=== PATIENT | male | born 1990 | race American Indian/Alaskan Native ===

== ENCOUNTER 2018-11-04 21:34 | Observation (INO) | payer BC ==
[2018-11-04 22:03] VITALS: BMI 32.1
[2018-11-04] MEDS ORDERED: Sodium Chloride 0.9% 1,000 ML IV STA (22:41)
[2018-11-05 00:16] LABS: BASO # 0.01 K/mm3 (0.0-2.0); BASO % 0.2 % (0.0-3.0); EOS % 0.3 % (1.5-5.0); HEMOGLOBIN 14.5 g/dL (14.0-18.0); LYMPH # 0.8 (1.2-3.4); LYMPH % 12.6 % (22.0-35.0); MEAN CELL VOLUME 83.5 fl (80.0-105.0); MEAN CORPUSCULAR HEMOGLOBIN 27.5 pg (25.0-35.0); MEAN CORPUSCULAR HGB CONC 32.9 g/dl (31.0-37.0); MEAN PLATELET VOLUME 11.1 fl (7.0-11.0); MONO # 0.5 (0.1-0.6); MONO % 8.8 % (1.0-6.0); RBC 5.28 10^6/uL (3.5-6.1); RED CELL DISTRIBUTION WIDTH 14.8 % (11.5-14.5); WHITE BLOOD COUNT 6.1 10^3/uL (4.5-11.0)
[2018-11-05 00:17] LABS: URINE BILIRUBIN NEGATIVE (NEGATIVE); URINE BLOOD NEGATIVE (NEGATIVE); URINE GLUCOSE (UA) NEGATIVE (NEGATIVE); URINE LEUKOCYTE ESTERASE NEGATIVE Leu/uL (NEGATIVE); URINE PROTEIN TRACE mg/dL (<30 mg/dL); URINE UROBILINOGEN 0.2 E.U./dL (<1 E.U./dL)
[2018-11-05 00:20] LABS: URINE APPEARANCE CLEAR (CLEAR); URINE COLOR YELLOW (YELLOW)
[2018-11-05 00:24] LABS: ALB/GLOB RATIO 1.1 (1.1-1.8); ALBUMIN 4.1 g/dL (3.0-4.8); ALT/SGPT 27 U/L (7-56); AST/SGOT 27 U/L (17-59); BLOOD UREA NITROGEN 16 mg/dL (7-21); CALCIUM 8.7 mg/dL (8.4-10.5); GFR NON-AFRICAN AMERICAN > 60; LIPASE 107 U/L (23-300)
[2018-11-05] MEDS ORDERED: Iohexol 350 MG/100 ML VIAL ONE (00:32)
[2018-11-05 00:41] LABS: URINE EPITHELIAL CELLS 0 - 2 /hpf (0-5); URINE RBC 0 - 2 /hpf (0-2); URINE WBC 0 - 2 /hpf (0-6)
--- NOTE | 2018-11-05 01:12 | ED PDOC ---
Arrival/HPI - General Historian: Patient - History of Present Illness Narrative History of Present Illness (Text): 11/05/18 01:09 28yr old male presents today with abdominal pain, nausea, vomiting and diarrhea since yesterday. Patient denies chest pain or shortness of breath. Patient states symptoms started after eating yesterday. Patient is complaining of periumbilical pain. Patient denies back pain. Denies testicular pain. Patient states his been having chills but denies fevers. Denies urinary symptoms. No medications have been taken at home. No other complaints <Anjali Hus - Last Filed: 11/05/18 02:30> <Chance Galindo - Last Filed: 11/07/18 11:10> - General Chief Complaint: GI Problem Time Seen by Provider: 11/04/18 21:43 Past Medical History - Provider Review Nursing Documentation Reviewed: Yes - Travel History Have you recently traveled outside [place] w/in the past 3 mons?: No - Infectious Disease Hx of Infectious Diseases: None - Tetanus Immunization Tetanus Immunization: Unknown - Past Medical History Past Medical History: No Previous - Psychiatric Hx Psychophysiologic Disorder: No Hx Anxiety: No Hx Bipolar Disorder: No Hx Depression: No Hx Emotional Abuse: No Hx Hallucinations: No Hx Panic Disorder: No Hx Post Traumatic Stress Disorder: No Hx Psychosis: No Hx Physical Abuse: No Hx Schizophrenia: No Hx Sexual Abuse: No Hx Substance Use: No - Past Surgical History Past Surgical History: No Previous - Anesthesia Hx Anesthesia: No Hx Anesthesia Reactions: No Hx Malignant Hyperthermia: No - Suicidal Assessment Feels Threatened In Home Enviroment: No <Anjali Hsu - Last Filed: 11/05/18 02:30> Family/Social History - Physician Review Nursing Documentation Reviewed: Yes Family/Social History: Unknown Family HX Smoking Status: Never Smoked Hx Alcohol Use: Yes Hx Substance Use: No Hx Substance Use Treatment: No <Anjali Hsu - Last Filed: 11/05/18 02:30> Allergies/Home Meds <Anjali Hsu - Last Filed: 11/05/18 02:30> <Chance Galindo - Last Filed: 11/07/18 11:10> Allergies/Adverse Reactions: Allergies No Known Allergies Allergy (Verified 05/26/18 11:07) Home Medications: Home Meds Medication Instructions Recorded Confirmed No Known Home Med 11/04/18 11/04/18 Review of Systems - Review of Systems Constitutional: absent: Fatigue, Fevers Respiratory: absent: SOB, Cough Cardiovascular: absent: Chest Pain, Palpitations Gastrointestinal: Abdominal Pain, Diarrhea, Nausea, Vomiting Genitourinary Male: absent: Dysuria, Frequency, Hematuria, Urinary Output Changes Musculoskeletal: absent: Arthralgias, Back Pain, Neck Pain Skin: absent: Rash, Pruritis Neurological: absent: Headache, Dizziness Psychiatric: absent: Anxiety, Depression <Anjali Hsu - Last Filed: 11/05/18 02:30> Physical Exam Vital Signs Reviewed: Yes Vital Signs Temp Pulse Resp BP Pulse Ox 11/05/18 00:34 98.4 F 92 H 18 111/57 L 97 11/04/18 22:39 98.4 F 93 H 18 120/67 100 Temperature: Afebrile Blood Pressure: Normal Pulse: Regular Respiratory Rate: Normal Appearance: Positive for: Well-Appearing, Non-Toxic, Comfortable Pain Distress: None Mental Status: Positive for: Alert and Oriented X 3 - Systems Exam Head: Present: Atraumatic Mouth: Present: Moist Mucous Membranes Neck: Present: Normal Range of Motion Respiratory/Chest: Present: Clear to Auscultation, Good Air Exchange. No: Respiratory Distress, Accessory Muscle Use Cardiovascular: Present: Regular Rate and Rhythm, Normal S1, S2. No: Murmurs Abdomen: Present: Tenderness (+ periumbilical tenderness, minimal rlq tenderness), Normal Bowel Sounds. No: Distention, Peritoneal Signs, Rebound, Guarding Back: Present: Normal Inspection. No: CVA Tenderness, Midline Tenderness, Paraspinal Tenderness Upper Extremity: Present: Normal ROM Lower Extremity: Present: Normal ROM Neurological: Present: GCS=15, Speech Normal Skin: Present: Warm, Dry, Normal Color. No: Rashes Psychiatric: Present: Alert, Oriented x 3 <Anjali Hsu - Last Filed: 11/05/18 02:30> Vital Signs Temp Pulse Resp BP Pulse Ox 11/05/18 00:34 98.4 F 92 H 18 111/57 L 97 11/04/18 22:39 98.4 F 93 H 18 120/67 100 <Chance Galindo - Last Filed: 11/07/18 11:10> Medical Decision Making ED Course and Treatment: 11/05/18 01:11 Patient is nontoxic well appearing with stable vital signs presenting with periumbilical abdominal pain CBC within normal limits CMP within normal limits Lipase within normal limits Urinalysis trace ketones CAT scan:FINDINGS: LUNG BASES: Mild atelectasis near the lung bases. LIVER: Unremarkable. GALLBLADDER AND BILE DUCTS: The gallbladder appears within normal limits. No radioopaque gallstones are seen. No biliary ductal dilatation is evident. PANCREAS: Unremarkable. SPLEEN: Unremarkable. ADRENAL GLANDS: Unremarkable. KIDNEYS, URETERS, AND BLADDER: The kidneys appear within normal limits. There is no hydronephrosis or hydroureter. No urinary calculi are seen. STOMACH AND BOWEL: Tiny hiatal hernia. Stomach is decompressed. APPENDIX: There is some air within the appendix however much of it is fluid-filled. The appendix does appear prominent, measuring up to 10 mm in diameter. There is minimal any periappendiceal stranding. The findings may most likely represent early or mild appendicitis, although the possibility of a normal but prominent appendix is not entirely excluded. No abscess or perforation. Please correlate clinically and an and if indicated, short interval followup imaging could be obtained. PERITONEUM: No free fluid. No free air. LYMPH NODES: No lymphadenopathy is evident. REPRODUCTIVE: Unremarkable as visualized. VASCULATURE: No evidence of abdominal aortic aneurysm. BONES: No aggressive appearing osseous lesion. No acute osseous pathology evident. IMPRESSION: 1. There is some air within the appendix however much of it is fluid-filled. The appendix does appear prominent, measuring up to 10 mm in diameter. There is minimal any periappendiceal stranding. The findings may most likely represent early or mild appendicitis, although the possibility of a normal but prominent appendix is not entirely excluded. No abscess or perforation. Please correlate clinically and an and if indicated, short interval followup imaging could be obtained. Electronically signed on Nov 05, 2018 2:06:37 AM EDT by: Miguel Gonzales M.D., Certified by ABR, MSK, Neuroradiology Patient reassessment: Patient resting comfortably in the emergency room in no distress. Vital stable Discussed all results with patient in depth case discussed with the surgical services asst case discussed with dr. Umana; will admit obs to his service. blood cultures pending pt started on rocephin and flagyl iV. All aspects of this case were discussed the attending of record. Impression: abdominal pain, appendicitis admit med/surg Reassessment Condition: Re-examined, Improved - Lab Interpretations Lab Results: Total Bilirubin 0.7 mg/dL (0.2-1.3) 11/04/18 23:53 AST 27 U/L (17-59) 11/04/18 23:53 ALT 27 U/L (7-56) 11/04/18 23:53 Alkaline Phosphatase 93 U/L (38-126) 11/04/18 23:53 Total Protein 7.9 g/dL (5.8-8.3) 11/04/18 23:53 Albumin 4.1 g/dL (3.0-4.8) 11/04/18 23:53 Globulin 3.8 gm/dL 11/04/18 23:53 Albumin/Globulin Ratio 1.1 (1.1-1.8) 11/04/18 23:53 Lipase 107 U/L (23-300) 11/04/18 23:53 Urine Color Yellow (YELLOW) 11/04/18 23:53 Urine Appearance Clear (CLEAR) 11/04/18 23:53 Urine pH 6.0 (4.7-8.0) 11/04/18 23:53 Ur Specific [place] 1.025 (1.005-1.035) 11/04/18 23:53 Urine Protein Trace mg/dL (<30 mg/dL) H 11/04/18 23:53 Urine Glucose (UA) Negative mg/dL (NEGATIVE) 11/04/18 23:53 Urine Ketones 15 mg/dL (NEGATIVE) H 11/04/18 23:53 Urine Blood Negative (NEGATIVE) 11/04/18 23:53 Urine Nitrate Negative (NEGATIVE) 11/04/18 23:53 Urine Bilirubin Negative (NEGATIVE) 11/04/18 23:53 Urine Urobilinogen 0.2 E.U./dL (<1 E.U./dL) 11/04/18 23:53 Ur Leukocyte Esterase Negative Orlin/uL (NEGATIVE) 11/04/18 23:53 Urine RBC 0 - 2 /hpf (0-2) 11/04/18 23:53 Urine WBC 0 - 2 /hpf (0-6) 11/04/18 23:53 Ur Epithelial Cells 0 - 2 /hpf (0-5) 11/04/18 23:53 Urine Bacteria None /hpf (NONE) 11/04/18 23:53 - RAD Interpretation Radiology Orders: 11/04/18 22:46 ABD & PELVIS IV CONTRAST ONLY [CT] Stat - Medication Orders Current Medication Orders: Discontinued Medications Sodium Chloride (Sodium Chloride 0.9%) 1,000 mls @ 999 mls/hr IV .Q1H1M STA Stop: 11/04/18 23:41 Last Admin: 11/04/18 23:35 Dose: 999 mls/hr eMAR Start Stop Document 11/04/18 23:35 OCS (Rec: 11/04/18 23:36 OCS [facility]-ER-20) Intravenous Solution Start Date 11/04/18 Start Time 23:35 End Date 11/05/18 End time 01:36 Total Infusion Time 121 Ketorolac Tromethamine (Toradol) 30 mg IVP STAT STA Stop: 11/04/18 22:47 Last Admin: 11/04/18 23:35 Dose: 30 mg MAR Pain Assessment Document 11/04/18 23:35 OCS (Rec: 11/04/18 23:35 OCS [facility]-ER-20) Pain Reassessment Is this a pain reassessment? No Sleep Is patient sleeping during reassessment? No Pain Scale Used Protocol: PSCALES Pain Scale Used Numeric Location Left, Right or Bilateral Right Upper or Lower Lower Pain Location Body Site Abdomen Description Description Constant Intensity of Pain at present 7 Pain Behavior Irritability Facial Grimacing Aggravating Factors ADL's IVP Administration Document 11/04/18 23:35 OCS (Rec: 11/04/18 23:35 OCS [facility]-ER-20) Charges for Administration # of IVP Administrations 1 Ondansetron HCl (Zofran Inj) 4 mg IVP STAT STA Stop: 11/04/18 22:47 Last Admin: 11/04/18 23:35 Dose: 4 mg IVP Administration Document 11/04/18 23:35 OCS (Rec: 11/04/18 23:35 OCS [facility]-ER-20) Charges for Administration # of IVP Administrations 1 <Anjali Hsu T - Last Filed: 11/05/18 02:30> - Lab Interpretations Lab Results: PT 18.0 SECONDS (9.4-12.5) H 11/04/18 23:53 INR 1.62 11/04/18 23:53 APTT 30.0 Seconds (26.9-38.3) 11/04/18 23:53 Total Bilirubin 0.7 mg/dL (0.2-1.3) 11/04/18 23:53 AST 27 U/L (17-59) 11/04/18 23:53 ALT 27 U/L (7-56) 11/04/18 23:53 Alkaline Phosphatase 93 U/L (38-126) 11/04/18 23:53 Total Protein 7.9 g/dL (5.8-8.3) 11/04/18 23:53 Albumin 4.1 g/dL (3.0-4.8) 11/04/18 23:53 Globulin 3.8 gm/dL 11/04/18 23:53 Albumin/Globulin Ratio 1.1 (1.1-1.8) 11/04/18 23:53 Lipase 107 U/L (23-300) 11/04/18 23:53 Urine Color Yellow (YELLOW) 11/04/18 23:53 Urine Appearance Clear (CLEAR) 11/04/18 23:53 Urine pH 6.0 (4.7-8.0) 11/04/18 23:53 Ur Specific [place] 1.025 (1.005-1.035) 11/04/18 23:53 Urine Protein Trace mg/dL (<30 mg/dL) H 11/04/18 23:53 Urine Glucose (UA) Negative mg/dL (NEGATIVE) 11/04/18 23:53 Urine Ketones 15 mg/dL (NEGATIVE) H 11/04/18 23:53 Urine Blood Negative (NEGATIVE) 11/04/18 23:53 Urine Nitrate Negative (NEGATIVE) 11/04/18 23:53 Urine Bilirubin Negative (NEGATIVE) 11/04/18 23:53 Urine Urobilinogen 0.2 E.U./dL (<1 E.U./dL) 11/04/18 23:53 Ur Leukocyte Esterase Negative [place]lin/uL (NEGATIVE) 11/04/18 23:53 Urine RBC 0 - 2 /hpf (0-2) 11/04/18 23:53 Urine WBC 0 - 2 /hpf (0-6) 11/04/18 23:53 Ur Epithelial Cells 0 - 2 /hpf (0-5) 11/04/18 23:53 Urine Bacteria None /hpf (NONE) 11/04/18 23:53 - RAD Interpretation Radiology Orders: 11/04/18 22:46 ABD & PELVIS IV CONTRAST ONLY [CT] Stat 11/05/18 02:10 CHEST PORTABLE [RAD] Stat - EKG Interpretation EKG Interpretation (Text): Reviewed EKG, NSR at [address]-segment elevations or depressions, no T-wave inversions, normal intervals. Interpreted by ED Physician: Yes Type: 12 lead EKG - Medication Orders Current Medication Orders: Metronidazole (Flagyl) 500 mg in 100 mls @ 100 mls/hr IVPB STAT STA; Protocol Stop: 11/05/18 03:09 Ceftriaxone Sodium (Rocephin 1 Gram Ivpb) 1 gm in 100 mls @ 200 mls/hr IVPB STAT STA; Protocol Stop: 11/05/18 02:39 Sodium Chloride (Sodium Chloride 0.9%) 1,000 mls @ 100 mls/hr IV .Q10H HANSEL Discontinued Medications Sodium Chloride (Sodium Chloride 0.9%) 1,000 mls @ 999 mls/hr IV .Q1H1M STA Stop: 11/04/18 23:41 Last Admin: 11/04/18 23:35 Dose: 999 mls/hr eMAR Start Stop Document 11/04/18 23:35 OCS (Rec: 11/04/18 23:36 OCS [facility]-ER-20) Intravenous Solution Start Date 11/04/18 Start Time 23:35 End Date 11/05/18 End time 01:36 Total Infusion Time 121 Ketorolac Tromethamine (Toradol) 30 mg IVP STAT STA Stop: 11/04/18 22:47 Last Admin: 11/04/18 23:35 Dose: 30 mg MAR Pain Assessment Document 11/04/18 23:35 OCS (Rec: 11/04/18 23:35 OCS [facility]-ER-20) Pain Reassessment Is this a pain reassessment? No Sleep Is patient sleeping during reassessment? No Pain Scale Used Protocol: PSCALES Pain Scale Used Numeric Location Left, Right or Bilateral Right Upper or Lower Lower Pain Location Body Site Abdomen Description Description Constant Intensity of Pain at present 7 Pain Behavior Irritability Facial Grimacing Aggravating Factors ADL's IVP Administration Document 11/04/18 23:35 OCS (Rec: 11/04/18 23:35 OCS [facility]-ER-20) Charges for Administration # of IVP Administrations 1 Ondansetron HCl (Zofran Inj) 4 mg IVP STAT STA Stop: 11/04/18 22:47 Last Admin: 11/04/18 23:35 Dose: 4 mg IVP Administration Document 11/04/18 23:35 OCS (Rec: 11/04/18 23:35 OCS [facility]-ER-20) Charges for Administration # of IVP Administrations 1 <Chance Galindo - Last Filed: 11/07/18 11:10> - PA / TECHNICAL TRAINING SPECIALIST / Resident Statement / has reviewed & agrees with the documentation as recorded. <Chance Galindo - Last Filed: 11/07/18 11:10> Disposition/Present on Arrival - Present on Arrival Any Indicators Present on Arrival: No History of DVT/PE: No History of Uncontrolled Diabetes: No Urinary Catheter: No History of Decub. Ulcer: No History Surgical Site Infection Following: None - Disposition Have Diagnosis and Disposition been Completed?: Yes Disposition Time: 02:13 Patient Plan: Observation <Anjali Hsu - Last Filed: 11/05/18 02:30> <Chance Galindo - Last Filed: 11/07/18 11:10> - Disposition Diagnosis: Appendicitis, Abdominal pain Disposition: HOSPITALIZED Condition: GOOD
[2018-11-05] MEDS ORDERED: cefTRIAXone 1 gm 1 GM/100 ML BAG IVPB STA (02:10)
[2018-11-05] MEDS ORDERED: metroNIDAZOLE IV 500 mg/100 ml 500 MG/100 ML BAG IVPB STA (02:10)
[2018-11-05] MEDS ORDERED: Sodium Chloride 0.9% 1,000 ML IV SCH (02:30)
[2018-11-05 02:35] LABS: INR 1.62
[2018-11-05] MEDS ORDERED: Potassium Chloride 20 mEq ER Tab PO STA (02:39)
[2018-11-05 03:53] VITALS: TEMP 98.1
--- NOTE | 2018-11-05 04:14 | CP.PCM.HP ---
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 Patient states he went out to eat a burger and a few hours later felt nauseated. He had multiple episodes of NBNB emesis and 3 episodes of non-bloody diarrhea. Patient started feeling better prior to his arrival to our ED. No known alleviating or aggravating factors. He had a similar episode a year ago that he attributes to food poisoning. Patient endorses subjective fevers however has remained afebrile during this visit. Patient states he has an appetite. Denies current symptoms of f/c, n/v/d, SOB, palpitations, chest pain, or urinary symptoms. PMH: Denies PSH: Denies FH: Noncontributory SH: Denies tobacco, alcohol, drugs. Lives at home with . ALL: NKDA Meds: None Present on Admission - Present on Admission Any Indicators Present on Admission: No Review of Systems - Constitutional Constitutional: absent: Chills, Fever, Weight Loss, Weakness - EENT Eyes: absent: Blurred Vision, Change in Vision Nose/Mouth/Throat: absent: Nasal Congestion, Nasal Discharge - Cardiovascular Cardiovascular: absent: Chest Pain, Dyspnea - Respiratory Respiratory: absent: Cough, Dyspnea - Gastrointestinal Gastrointestinal: absent: Abdominal Pain, Cramping, Diarrhea, Heartburn, Nausea, Vomiting - Genitourinary Genitourinary: absent: Difficulty Urinating, Dysuria - Musculoskeletal Musculoskeletal: absent: Back Pain, Neck Pain - Integumentary Integumentary: absent: Bleeding Lesions, Changing Lesions - Neurological Neurological: absent: Dizziness, Numbness - Psychiatric Psychiatric: absent: Anxiety, Depression Past Patient History - Infectious Disease Hx of Infectious Diseases: None - Tetanus Immunizations Tetanus Immunization: Unknown - Past Social History Smoking Status: Never Smoked - CARDIAC Hx Cardiac Disorders: No - PULMONARY Hx Respiratory Disorders: No - NEUROLOGICAL Hx Neurological Disorder: No - HEENT Hx HEENT Problems: No - RENAL Hx Chronic Kidney Disease: No - ENDOCRINE/METABOLIC Hx Endocrine Disorders: No - HEMATOLOGICAL/ONCOLOGICAL Hx Blood Disorders: No - INTEGUMENTARY Hx Dermatological Problems: No - MUSCULOSKELETAL/RHEUMATOLOGICAL Hx Musculoskeletal Disorders: No Hx Falls: No - GASTROINTESTINAL Hx Gastrointestinal Disorders: No - GENITOURINARY/GYNECOLOGICAL Hx Genitourinary Disorders: No - PSYCHIATRIC Hx Psychophysiologic Disorder: No - SURGICAL HISTORY Hx Surgeries: No - ANESTHESIA Hx Anesthesia: No Hx Anesthesia Reactions: No Hx Malignant Hyperthermia: No Meds Allergies/Adverse Reactions: Allergies Allergy/AdvReac Type Severity Reaction Status Date / Time No Known Allergies Allergy Verified 05/26/18 11:07 Physical Exam - Constitutional Appears: Well, Non-toxic, No Acute Distress - Head Exam Head Exam: ATRAUMATIC, NORMAL INSPECTION, NORMOCEPHALIC - Eye Exam Eye Exam: EOMI Pupil Exam: PERRL - ENT Exam ENT Exam: Mucous Membranes Moist - Respiratory Exam Respiratory Exam: NORMAL BREATHING PATTERN. absent: Wheezes, Respiratory Dist ress - Cardiovascular Exam Cardiovascular Exam: REGULAR RHYTHM, +S1, +S2. absent: Tachycardia - GI/Abdominal Exam GI & Abdominal Exam: Normal Bowel Sounds, Soft. absent: Distended, Guarding, Rebound, Tenderness - Extremities Exam Extremities exam: Positive for: normal inspection. Negative for: pedal edema - Back Exam Back exam: absent: CVA tenderness (L), CVA tenderness (R) - Neurological Exam Neurological exam: Alert, Oriented x3 - Psychiatric Exam Psychiatric exam: Normal Affect, Normal Mood - Skin Skin Exam: Dry, Intact, Normal Color, Warm Results - Vital Signs Recent Vital Signs: Last Vital Signs Temp 98.1 F 11/05/18 03:52 Pulse 80 11/05/18 03:52 Resp 20 11/05/18 03:52 BP 131/79 11/05/18 03:52 Pulse Ox 100 11/05/18 02:57 - Labs Result Diagrams: 11/04/18 23:53 11/04/18 23:53 Labs: Laboratory Results - last 24 hr 11/04/18 11/04/18 11/04/18 23:53 23:53 23:53 WBC 6.1 RBC 5.28 Hgb 14.5 Hct 44.1 MCV 83.5 MCH 27.5 MCHC 32.9 RDW 14.8 H Plt Count 210 MPV 11.1 H Neut % (Auto) 78.1 H Lymph % (Auto) 12.6 L [place] % (Auto) 8.8 H Eos % (Auto) 0.3 L Baso % (Auto) 0.2 Lymph # (Auto) 0.8 L [place] # (Auto) 0.5 Eos # (Auto) 0.0 Baso # (Auto) 0.01 Absolute Neuts (auto) 4.79 PT INR APTT Sodium 137 Potassium 3.5 L Chloride 99 Carbon Dioxide 28 Anion Gap 14 BUN 16 Creatinine 1.1 Est GFR ( Amer) > 60 Est GFR (Non-Af Amer) > 60 Random Glucose 92 Calcium 8.7 Total Bilirubin 0.7 AST 27 ALT 27 Alkaline Phosphatase 93 Total Protein 7.9 Albumin 4.1 Globulin 3.8 Albumin/Globulin Ratio 1.1 Lipase 107 Urine Color Yellow Urine Appearance Clear Urine pH 6.0 Ur Specific [place] 1.025 Urine Protein Trace H Urine Glucose (UA) Negative Urine Ketones 15 H Urine Blood Negative Urine Nitrate Negative Urine Bilirubin Negative Urine Urobilinogen 0.2 Ur Leukocyte Esterase Negative Urine RBC 0 - 2 Urine WBC 0 - 2 Ur Epithelial Cells 0 - 2 Urine Bacteria None BBK History Checked 11/04/18 11/05/18 23:53 02:10 WBC RBC Hgb Hct MCV MCH MCHC RDW Plt Count MPV Neut % (Auto) Lymph % (Auto) [place] % (Auto) Eos % (Auto) Baso % (Auto) Lymph # (Auto) [place] # (Auto) Eos # (Auto) Baso # (Auto) Absolute Neuts (auto) PT 18.0 H INR 1.62 APTT 30.0 Sodium Potassium Chloride Carbon Dioxide Anion Gap BUN Creatinine Est GFR ( Amer) Est GFR (Non-Af Amer) Random Glucose Calcium Total Bilirubin AST ALT Alkaline Phosphatase Total Protein Albumin Globulin Albumin/Globulin Ratio Lipase Urine Color Urine Appearance Urine pH Ur Specific [place] Urine Protein Urine Glucose (UA) Urine Ketones Urine Blood Urine Nitrate Urine Bilirubin Urine Urobilinogen Ur Leukocyte Esterase Urine RBC Urine WBC Ur Epithelial Cells Urine Bacteria BBK History Checked No verified bt Assessment & Plan - Assessment and Plan (Free Text) Assessment: 28M w/ abdominal pain, n/v/d CTAP suspicious for early signs of acute apendicitis however no inflammation, fecalith, or dilating of appendix noted Plan: Likely stomach virus vs appendicitis NPO - CLD in AM AM labs Analgesics and antiemetics PRN IVF Monitor diet tolerance Monitor bowel function If acutely worsens, will reassess Further recommendations per Dr. Avila PGY1 <Nabil Barrera N - Last Filed: 11/08/18 14:32> Results - Vital Signs Recent Vital Signs: Last Vital Signs Temp 98.1 F 11/05/18 06:00 Pulse 73 11/05/18 06:00 Resp 19 11/05/18 06:00 BP 102/69 11/05/18 06:00 Pulse Ox 98 11/05/18 06:00 - Labs Result Diagrams: 11/05/18 07:50 11/05/18 07:50 Assessment & Plan - Assessment and Plan (Free Text) Plan: All medical record entries made by the resident were at my direction and personally directed by me. I have reviewed the chart and agree that the record accurately reflects my personal performance of the history, physical exam, medical decision making,
--- NOTE | 2018-11-05 07:51 | RAD ---
Date of service: 11/05/2018 HISTORY: abd pain COMPARISON: No prior. TECHNIQUE: 1 view obtained. FINDINGS: LUNGS: No active pulmonary disease. PLEURA: No significant pleural effusion identified, no pneumothorax apparent. CARDIOVASCULAR: No aortic atherosclerotic calcification present. Normal cardiac size. No pulmonary vascular congestion. OSSEOUS STRUCTURES: No significant abnormalities. VISUALIZED UPPER ABDOMEN: Normal. OTHER FINDINGS: None. IMPRESSION: No active disease.
[2018-11-05 08:19] LABS: BLOOD UREA NITROGEN 14 mg/dL (7-21); CALCIUM 7.9 mg/dL (8.4-10.5); GFR NON-AFRICAN AMERICAN > 60
[2018-11-05 08:53] LABS: HEMOGLOBIN 13.7 g/dL (14.0-18.0); MEAN CELL VOLUME 83.8 fl (80.0-105.0); MEAN CORPUSCULAR HEMOGLOBIN 26.8 pg (25.0-35.0); MEAN PLATELET VOLUME 10.9 fl (7.0-11.0); RBC 5.11 10^6/uL (3.5-6.1)
[2018-11-05 09:21] VITALS: BP 102/69; PULSE 73; RESP 19; O2SAT 98
--- NOTE | 2018-11-05 10:29 | CT ---
Date of service: 11/05/2018 PROCEDURE: CT Abdomen and Pelvis with contrast HISTORY: periumbilical, rlq abd pain COMPARISON: None. TECHNIQUE: Contrast dose: 100 cc of Omni 350 Radiation dose: Total exam DLP = 848.99 mGy-cm. This CT exam was performed using one or more of the following dose reduction techniques: Automated exposure control, adjustment of the mA and/or kV according to patient size, and/or use of iterative reconstruction technique. FINDINGS: LOWER THORAX: Unremarkable. LIVER: Unremarkable. No gross lesion or ductal dilatation. GALLBLADDER AND BILE DUCTS: Unremarkable. PANCREAS: Unremarkable. No gross lesion or ductal dilatation. SPLEEN: Unremarkable. ADRENALS: Unremarkable. No mass. KIDNEYS AND URETERS: Unremarkable. No hydronephrosis. No solid mass. VASCULATURE: Unremarkable. No aortic aneurysm. No aortic atherosclerotic calcification or mural plaque present. BOWEL: Unremarkable. No obstruction. No gross mural thickening. APPENDIX: The proximal appendix is dilated measuring 10 mm in diameter and filled with fluid. The distal appendix is normal in caliber and contains air. Findings are equivocal for appendicitis and clinical correlation is suggested. There is no inflammation in the surrounding fat planes. PERITONEUM: Unremarkable. No free fluid. No free air. LYMPH NODES: Unremarkable. No enlarged lymph nodes. BLADDER: Unremarkable. REPRODUCTIVE: Unremarkable. BONES: No acute fracture. OTHER FINDINGS: The report concurs with the preliminary [facility] report IMPRESSION: The proximal appendix is dilated measuring 10 mm in diameter and filled with fluid. The distal appendix is normal in caliber and contains air. Findings are equivocal for appendicitis and clinical correlation is suggested. There is no inflammation in the surrounding fat planes.
--- NOTE | 2018-11-05 13:48 | CP.PCM.DIS ---
<Guevara Gant - Last Filed: 11/05/18 13:41> Provider - Provider Date of Admission: 11/05/18 02:13 Attending physician: Nabil Barrera MD Primary care physician: NO PRIMARY CARE PROVIDER Time Spent in preparation of Discharge (in minutes): 70 Hospital Course - Lab Results Lab Results: Most Recent Lab Values WBC 4.0 10^3/uL (4.5-11.0) L D 11/05/18 07:50 RBC 5.11 10^6/uL (3.5-6.1) 11/05/18 07:50 Hgb 13.7 g/dL (14.0-18.0) L 11/05/18 07:50 Hct 42.8 % (42.0-52.0) 11/05/18 07:50 MCV 83.8 fl (80.0-105.0) 11/05/18 07:50 MCH 26.8 pg (25.0-35.0) 11/05/18 07:50 MCHC 32.0 g/dl (31.0-37.0) 11/05/18 07:50 RDW 15.0 % (11.5-14.5) H 11/05/18 07:50 Plt Count 193 10^3/uL (120.0-450.0) 11/05/18 07:50 MPV 10.9 fl (7.0-11.0) 11/05/18 07:50 Neut % (Auto) 78.1 % (50.0-68.0) H 11/04/18 23:53 Lymph % (Auto) 12.6 % (22.0-35.0) L 11/04/18 23:53 [place] % (Auto) 8.8 % (1.0-6.0) H 11/04/18 23:53 Eos % (Auto) 0.3 % (1.5-5.0) L 11/04/18 23:53 Baso % (Auto) 0.2 % (0.0-3.0) 11/04/18 23:53 Lymph # (Auto) 0.8 (1.2-3.4) L 11/04/18 23:53 [place] # (Auto) 0.5 (0.1-0.6) 11/04/18 23:53 Eos # (Auto) 0.0 (0.0-0.7) 11/04/18 23:53 Baso # (Auto) 0.01 K/mm3 (0.0-2.0) 11/04/18 23:53 Absolute Neuts (auto) 4.79 (1.4-6.5) 11/04/18 23:53 PT 18.0 SECONDS (9.4-12.5) H 11/04/18 23:53 INR 1.62 11/04/18 23:53 APTT 30.0 Seconds (26.9-38.3) 11/04/18 23:53 Sodium 139 mmol/L (132-148) 11/05/18 07:50 Potassium 4.0 mmol/L (3.6-5.0) 11/05/18 07:50 Chloride 105 mmol/L (98-107) 11/05/18 07:50 Carbon Dioxide 27 mmol/L (21-33) 11/05/18 07:50 Anion Gap 11 (10-20) 11/05/18 07:50 BUN 14 mg/dL (7-21) 11/05/18 07:50 Creatinine 1.1 mg/dl (0.8-1.5) 11/05/18 07:50 Est GFR ( Amer) > 60 11/05/18 07:50 Est GFR (Non-Af Amer) > 60 11/05/18 07:50 Random Glucose 94 mg/dL (70-110) 11/05/18 07:50 Calcium 7.9 mg/dL (8.4-10.5) L 11/05/18 07:50 Total Bilirubin 0.7 mg/dL (0.2-1.3) 11/04/18 23:53 AST 27 U/L (17-59) 11/04/18 23:53 ALT 27 U/L (7-56) 11/04/18 23:53 Alkaline Phosphatase 93 U/L (38-126) 11/04/18 23:53 Total Protein 7.9 g/dL (5.8-8.3) 11/04/18 23:53 Albumin 4.1 g/dL (3.0-4.8) 11/04/18 23:53 Globulin 3.8 gm/dL 11/04/18 23:53 Albumin/Globulin Ratio 1.1 (1.1-1.8) 11/04/18 23:53 Lipase 107 U/L (23-300) 11/04/18 23:53 Urine Color Yellow (YELLOW) 11/04/18 23:53 Urine Appearance Clear (CLEAR) 11/04/18 23:53 Urine pH 6.0 (4.7-8.0) 11/04/18 23:53 Ur Specific [place] 1.025 (1.005-1.035) 11/04/18 23:53 Urine Protein Trace mg/dL (<30 mg/dL) H 11/04/18 23:53 Urine Glucose (UA) Negative mg/dL (NEGATIVE) 11/04/18 23:53 Urine Ketones 15 mg/dL (NEGATIVE) H 11/04/18 23:53 Urine Blood Negative (NEGATIVE) 11/04/18 23:53 Urine Nitrate Negative (NEGATIVE) 11/04/18 23:53 Urine Bilirubin Negative (NEGATIVE) 11/04/18 23:53 Urine Urobilinogen 0.2 E.U./dL (<1 E.U./dL) 11/04/18 23:53 Ur Leukocyte Esterase Negative Orlin/uL (NEGATIVE) 11/04/18 23:53 Urine RBC 0 - 2 /hpf (0-2) 11/04/18 23:53 Urine WBC 0 - 2 /hpf (0-6) 11/04/18 23:53 Ur Epithelial Cells 0 - 2 /hpf (0-5) 11/04/18 23:53 Urine Bacteria None /hpf (NONE) 11/04/18 23:53 Blood Type B POSITIVE 11/05/18 02:10 Blood Type Confirm B POSITIVE 11/05/18 03:15 Antibody Screen Negative 11/05/18 02:10 BBK History Checked No verified bt 11/05/18 02:10 - Hospital Course Hospital Course: Upon Admission: 28M, no significant past medical history, presents to our emergency department with acute onset diffuse abdominal pain, nausea, vomiting, and diarrhea since Friday afternoon. Patient states he went out to eat a burger and a few hours later felt nauseated. He had multiple episodes of NBNB emesis and 3 episodes of non-bloody diarrhea. Patient started feeling better prior to his arrival to our ED. No known alleviating or aggravating factors. He had a similar episode a year ago that he attributes to food poisoning. Patient endorses subjective fevers however has remained afebrile during this visit. Patient states he has an appetite. Denies current symptoms of f/c, n/v/d, SOB, palpitations, chest pain, or urinary symptoms. Patient was admitted for gastroenteritis r/o appendicitis. Hospital Course: CT abd/pel showed proximal dilation of appendix filled with fluid. Patient remained afebrile without leukocytosis. The following day, patient was asymptomatic, denying fever, chills, nausea, vomiting, abdominal pain. He had an appetite. Patient was able to tolerate breakfast and lunch. Upon Discharge: Patient was deemed stable for discharge to home. He was instructed to return to the ED if symptoms recur. Patient understood instructions and agreed. Discharge Exam - Head Exam Head Exam: ATRAUMATIC, NORMAL INSPECTION, NORMOCEPHALIC - Eye Exam Eye Exam: EOMI, Normal appearance - ENT Exam ENT Exam: Mucous Membranes Moist - Neck Exam Neck exam: Normal Inspection - Respiratory Exam Respiratory Exam: NORMAL BREATHING PATTERN. absent: Respiratory Distress - GI/Abdominal Exam GI & Abdominal Exam: Soft. absent: Distended, Guarding, Tenderness - Extremities Exam Extremities exam: normal inspection - Neurological Exam Neurological exam: Alert, Oriented x3 - Psychiatric Exam Psychiatric exam: Normal Affect, Normal Mood - Skin Skin Exam: Normal Color Discharge Plan - Follow Up Plan Condition: GOOD Disposition: HOME/ ROUTINE Instructions: Acute Abdominal Pain (DC), Acute Abdominal Pain (GEN) Additional Instructions: Please follow up with your primary care physician within 2 weeks. Please return to the emergency department if symptoms worsen. Take care and be well. Referrals: PCP,NO [Primary Care Provider] - <Nabil Barrera - Last Filed: 11/08/18 14:33> Provider - Provider Date of Admission: 11/05/18 02:13 Attending physician: Nabil Barrera MD Primary care physician: NO PRIMARY CARE PROVIDER Hospital Course - Lab Results Lab Results: Micro Results 11/05/18 02:20 Blood Blood Culture - Preliminary NO GROWTH AFTER 3 DAYS 11/05/18 02:00 Blood Blood Culture - Preliminary NO GROWTH AFTER 3 DAYS Most Recent Lab Values WBC 4.0 10^3/uL (4.5-11.0) L D 11/05/18 07:50 RBC 5.11 10^6/uL (3.5-6.1) 11/05/18 07:50 Hgb 13.7 g/dL (14.0-18.0) L 11/05/18 07:50 Hct 42.8 % (42.0-52.0) 11/05/18 07:50 MCV 83.8 fl (80.0-105.0) 11/05/18 07:50 MCH 26.8 pg (25.0-35.0) 11/05/18 07:50 MCHC 32.0 g/dl (31.0-37.0) 11/05/18 07:50 RDW 15.0 % (11.5-14.5) H 11/05/18 07:50 Plt Count 193 10^3/uL (120.0-450.0) 11/05/18 07:50 MPV 10.9 fl (7.0-11.0) 11/05/18 07:50 Neut % (Auto) 78.1 % (50.0-68.0) H 11/04/18 23:53 Lymph % (Auto) 12.6 % (22.0-35.0) L 11/04/18 23:53 [place] % (Auto) 8.8 % (1.0-6.0) H 11/04/18 23:53 Eos % (Auto) 0.3 % (1.5-5.0) L 11/04/18 23:53 Baso % (Auto) 0.2 % (0.0-3.0) 11/04/18 23:53 Lymph # (Auto) 0.8 (1.2-3.4) L 11/04/18 23:53 [place] # (Auto) 0.5 (0.1-0.6) 11/04/18 23:53 Eos # (Auto) 0.0 (0.0-0.7) 11/04/18 23:53 Baso # (Auto) 0.01 K/mm3 (0.0-2.0) 11/04/18 23:53 Absolute Neuts (auto) 4.79 (1.4-6.5) 11/04/18 23:53 PT 18.0 SECONDS (9.4-12.5) H 11/04/18 23:53 INR 1.62 11/04/18 23:53 APTT 30.0 Seconds (26.9-38.3) 11/04/18 23:53 Sodium 139 mmol/L (132-148) 11/05/18 07:50 Potassium 4.0 mmol/L (3.6-5.0) 11/05/18 07:50 Chloride 105 mmol/L (98-107) 11/05/18 07:50 Carbon Dioxide 27 mmol/L (21-33) 11/05/18 07:50 Anion Gap 11 (10-20) 11/05/18 07:50 BUN 14 mg/dL (7-21) 11/05/18 07:50 Creatinine 1.1 mg/dl (0.8-1.5) 11/05/18 07:50 Est GFR ( Amer) > 60 11/05/18 07:50 Est GFR (Non-Af Amer) > 60 11/05/18 07:50 Random Glucose 94 mg/dL (70-110) 11/05/18 07:50 Calcium 7.9 mg/dL (8.4-10.5) L 11/05/18 07:50 Total Bilirubin 0.7 mg/dL (0.2-1.3) 11/04/18 23:53 AST 27 U/L (17-59) 11/04/18 23:53 ALT 27 U/L (7-56) 11/04/18 23:53 Alkaline Phosphatase 93 U/L (38-126) 11/04/18 23:53 Total Protein 7.9 g/dL (5.8-8.3) 11/04/18 23:53 Albumin 4.1 g/dL (3.0-4.8) 11/04/18 23:53 Globulin 3.8 gm/dL 11/04/18 23:53 Albumin/Globulin Ratio 1.1 (1.1-1.8) 11/04/18 23:53 Lipase 107 U/L (23-300) 11/04/18 23:53 Urine Color Yellow (YELLOW) 11/04/18 23:53 Urine Appearance Clear (CLEAR) 11/04/18 23:53 Urine pH 6.0 (4.7-8.0) 11/04/18 23:53 Ur Specific [place] 1.025 (1.005-1.035) 11/04/18 23:53 Urine Protein Trace mg/dL (<30 mg/dL) H 11/04/18 23:53 Urine Glucose (UA) Negative mg/dL (NEGATIVE) 11/04/18 23:53 Urine Ketones 15 mg/dL (NEGATIVE) H 11/04/18 23:53 Urine Blood Negative (NEGATIVE) 11/04/18 23:53 Urine Nitrate Negative (NEGATIVE) 11/04/18 23:53 Urine Bilirubin Negative (NEGATIVE) 11/04/18 23:53 Urine Urobilinogen 0.2 E.U./dL (<1 E.U./dL) 11/04/18 23:53 Ur Leukocyte Esterase Negative [place]lin/uL (NEGATIVE) 11/04/18 23:53 Urine RBC 0 - 2 /hpf (0-2) 11/04/18 23:53 Urine WBC 0 - 2 /hpf (0-6) 11/04/18 23:53 Ur Epithelial Cells 0 - 2 /hpf (0-5) 11/04/18 23:53 Urine Bacteria None /hpf (NONE) 11/04/18 23:53 Blood Type B POSITIVE 11/05/18 02:10 Blood Type Confirm B POSITIVE 11/05/18 03:15 Antibody Screen Negative 11/05/18 02:10 BBK History Checked No verified bt 11/05/18 02:10
--- NOTE | 2018-11-05 16:25 | CARD ---
APPROVED REPORT Date of service: 11/05/2018 EKG Measurement Heart [id number] <Conclusion> Normal sinus rhythm Possible Left atrial enlargement
== END 2018-11-05 18:15 | disposition home or self-care (01) ==
LOC: ED 21:34 → ERH 11-05 02:13 → 3RSO 11-05 03:10
PROVIDERS: ADMIT Surgery; ATTEND Surgery
DX: K52.9 Noninfective gastroenteritis and colitis, unspecified (principal)
CPT/HCPCS: 71045; 74177; 80048; 80053; 81001; 81003; 83690; 85025; 85027; 85610; 85730; 86850; 86900; 87040; 93005; 96361; 96374; 96375; 99284; G0378; J0696; J1885; J2405; J7030; Q9967